=== PATIENT | male | born 1970 | race Caucasian/White ===

== ENCOUNTER 2018-02-22 19:41 | Emergency (ER) | payer OTHER ==
[~2018-02-22] VITALS: Ht 185.4 cm; Wt 77.1 kg
[~2018-02-22 19:41] MED LIST: AMOXICILLIN 50500 M1 PO; AMOXICILLIN 50500 MG PO; CIPRO500 MG PO; CIPROFLOXACIN500 M1 PO; CLOTRIMAZOLE 1%15 G1 TOP; CLOTRIMAZOLE AF30 GM TP; DOXYCYCLINE 10100 MG PO; FLAGYL500 MG PO; IBUPROFEN 200200 M1 PO; IBUPROFEN 800800 M1 PO; IBUPROFEN 800800 MG PO; KEFLEX500 M1 PO; KEFLEX500 MG PO; NAPROSYN500 MG PO; NOHOMEMEDICATIONS; NORCO 5-325 TA1 EACH PO; ONDANSETRON HCL4 M2 PO; PENICILLIN V P500 MG PO; PENICILLIN VK500 MG PO; PREDNISONE 20 M20 MG PO; ULTRAM 50MG TAB50 MG PO; VENTOLIN HFA 1818 GM INH
[2018-02-22 19:46] VITALS: BP 155/95
[2018-02-22] MEDS ORDERED: FLEXERIL PO (21:08)
== END 2018-02-22 21:20 | disposition home or self-care (01) ==
LOC: M.ERS 19:41
DX: S39.012A Strain of muscle, fascia and tendon of lower back, initial encounter (principal); G43.909 Migraine, unspecified, not intractable, without status migrainosus; F17.210 Nicotine dependence, cigarettes, uncomplicated; Z86.19 Personal history of other infectious and parasitic diseases; X58.XXXA Exposure to other specified factors, initial encounter; Y93.89 Activity, other specified; Y92.89 Other specified places as the place of occurrence of the external cause; Y99.8 Other external cause status